=== PATIENT | female | born 1960 ===

== ENCOUNTER 2021-12-01 10:58 | Emergency (ER) | payer MEDICAID, OTHER ==
[~2021-12-01] VITALS: Ht 154.9 cm; Wt 56.7 kg
[2021-12-01 12:30] VITALS: BP 148/82
== END 2021-12-01 13:12 | disposition home or self-care (01) ==
LOC: ER 10:58
DX: G51.0 Bell's palsy (principal); E11.9 Type 2 diabetes mellitus without complications; F12.10 Cannabis abuse, uncomplicated; R94.31 Abnormal electrocardiogram [ECG] [EKG]
CPT/HCPCS: 70450; 93005